=== PATIENT | female | born 1970 | race African-American/Black ===

== ENCOUNTER → 2020-10-19 | Outpatient (CLI) | payer OTHER | LOC: ULTRA 08:06 | PROVIDERS: ATTEND Nurse Practitioner | DX: R10.11 Right upper quadrant pain (principal) ==

== ENCOUNTER → 2020-11-12 | Outpatient (CLI) | payer OTHER | LOC: BC 15:58 | PROVIDERS: ATTEND Nurse Practitioner | DX: Z12.31 Encounter for screening mammogram for malignant neoplasm of breast (principal) ==